=== PATIENT | female | born 1950 | race Caucasian/White ===

== ENCOUNTER 2018-12-18 14:16 | Emergency (ER) | payer OTHER ==
[~2018-12-18] VITALS: Ht 167.6 cm; Wt 72.6 kg
[2018-12-18 14:59] LABS: BASOPHILS ABSOLUTE AUTO 0.05 K/mm3 (0.00-0.23); BASOPHILS PERCENT AUTO 1 % (0-2); EOSINOPHILS ABSOLUTE AUTO 0.34 K/mm3 (0.00-0.68); EOSINOPHILS PERCENT AUTO 3 % (0-6); Hematocrit 35.8 % (33.0-51.0); Hemoglobin 11.7 g/dL (11.5-16.0); IMMATURE GRAN ABSOLUTE AUTO 0.03 K/mm3 (0.00-0.10); IMMATURE GRAN PERCENT AUTO 0 % (0-1); LYMPHOCYTES PERCENT AUTO 45 % (21-46); MONOCYTES PERCENT AUTO 9 % (4-13); Mean Corpuscular HGB 30.4 pg (26.0-34.0); Mean Corpuscular HGB Conc 32.7 g/dL (31.5-36.5); Mean Corpuscular Volume 93 fL (80-100); Mean Platelet Volume 10.3 fL (9.1-12.4); NEUTROPHILS ABSOLUTE AUTO 4.17 K/mm3 (1.96-9.15); NEUTROPHILS PERCENT AUTO 42 % (41-73); Platelet Count 379 K/mm3 (150-400); RDW Coefficient Variation 14.7 % (11.7-14.2); RDW Standard Deviation 50.4 fL (35.1-46.3); Red Blood Cell Count 3.85 M/mm3 (3.80-5.20); White Blood Cell Count 9.89 K/mm3 (4.00-11.30)
[2018-12-18 15:12] LABS: Albumin, Blood 3.4 g/dL (3.4-5.0); Albumin/Globulin Ratio 0.9 (0.8-1.8); Bilirubin, Total 0.2 mg/dL (0.1-1.0); Bun/Creatinine Ratio 18.4 (12.0-20.0); Calcium, Blood 9.3 mg/dL (8.5-10.1); Creatinine, Blood 1.36 mg/dL (0.40-1.00); Globulin, Blood 3.9 g/dL (2.2-4.0); Potassium, Blood 4.1 mmol/L (3.5-5.5); Total Protein, Blood 7.3 g/dL (6.4-8.2)
[2018-12-18] MEDS ORDERED: MICROZIDE12.5 M1 PO (15:40)
[2018-12-18] MEDS ORDERED: ENAL5 PO (15:41)
[2018-12-18] MEDS ORDERED: VITB2 (15:41)
[2018-12-18] MEDS ORDERED: ATOR40TA (15:42)
[2018-12-18] MEDS ORDERED: METF500C PO (15:42)
[2018-12-18] MEDS ORDERED: Oxycodone HCl5 M1 (15:43)
[2018-12-18] MEDS ORDERED: Inderal40 MG (15:43)
[2018-12-18] MEDS ORDERED: GABA100 PO (15:44)
[2018-12-18] MEDS ORDERED: BUPR75 PO (15:44)
[2018-12-18] MEDS ORDERED: LEVSOD100 PO (15:44)
[2018-12-18] MEDS ORDERED: CYCL10 PO (15:45)
[2018-12-18 16:59] LABS: Source, Urine Voided
[2018-12-18 17:04] LABS: Bilirubin, Urine Neg (Neg); Blood, Urine Neg (Neg); Glucose Qualitative, Urine Neg (Neg); Ketones, Urine Neg (Neg); Leukocyte Esterase, Urine 1+ (Neg); Nitrite, Urine Pos (Neg); Protein, Urine Neg (Neg); Urobilinogen, Urine NORM (Normal)
[2018-12-18 17:09] LABS: Appearance, Urine Clear (Clear); Color, Urine Yellow (P-Yellow)
[2018-12-18 17:10] LABS: Bacteria Many /hpf; Red Blood Cells, Urine 0-2 /hpf (0-2); Squamous Epithelial Cells Few /hpf (Few)
== END 2018-12-18 18:17 | disposition home or self-care (01) ==
LOC: ER 14:16
PROVIDERS: Emergency Medicine
DX: S30.0XXA Contusion of lower back and pelvis, initial encounter (principal); I95.9 Hypotension, unspecified; Z72.0 Tobacco use; Z88.8 Allergy status to other drugs, medicaments and biological substances; Z88.0 Allergy status to penicillin; W18.39XA Other fall on same level, initial encounter
CPT/HCPCS: 71046; 72220; 73502; 80053; 81001; 84484; 85025; 87077; 87086; 87186; 93005; 93010; 96360; 96361; 99284-25; J7120

== ENCOUNTER 2022-06-16 07:36 | Day surgery (SDC) | payer OTHER ==
[~2022-06-16] VITALS: Ht 167.6 cm; Wt 88.6 kg
[~2022-06-16 07:36] MED LIST: ATOR40TA; BUPR75 PO; CYCL10 PO; ENAL5 PO; GABA100 PO; Inderal40 MG; LEVSOD100 PO; METF500C PO; MICROZIDE12.5 M1 PO; Oxycodone HCl5 M1; VITB2
[2022-06-16] MEDS ORDERED: HYDCHL25 (08:02)
[2022-06-16] MEDS ORDERED: CENTRUM SILVER1 EAC2 (08:03)
[2022-06-16] MEDS ORDERED: Vitamin C100 M1 (08:04)
[2022-06-16] MEDS ORDERED: CALCIUM 500 MG1 EAC2 (08:04)
[2022-06-16] MEDS ORDERED: MAGCHL64ER (08:04)
[2022-06-16] MEDS ORDERED: ZINC15 (08:04)
[2022-06-16] MEDS ORDERED: FOLI1 (08:04)
[2022-06-16] MEDS ORDERED: ALOGLIPTIN12.5 M1 (08:05)
[2022-06-16] MEDS ORDERED: SERT25 (08:06)
[2022-06-16] MEDS ORDERED: INSULANI (08:28)
[2022-06-16] MEDS ORDERED: NOVOLOG FL100 UNIT/3 (08:28)
--- NOTE | 2022-06-16 10:49 | NUR ---
06/16/22 1049 LAYA SANTORO PT REPORTING LOW ABDOMINAL PAIN. HOT PACK AND WARM BLANKET APPLIED. PT REPORTS MILD IMPROVEMENT. DR. JARRETT AWARE. IS ANTICIPATED THIS IS DUE TO ADHESIONS FROM PRIOR PROCEDURES AND DIFFICULTY DURING PROCEDURE TO NAVIGATE COLON. PT INSTRUCTED TO USE OTC PAIN RELIEVER AND WARM PACK ONCE HOME. CALL IF NOT IMPROVED IN 24-48 HOURS
== END 2022-06-16 10:51 | disposition home or self-care (01) ==
LOC: ORSCSDS 07:36
PROVIDERS: Internal Medicine Gastroenterology
PROC: 0DBL8ZX Excision of Transverse Colon, Via Natural or Artificial Opening Endoscopic, Diagnostic (ICD-10-PCS; principal; 2022-06-16 09:00)
PROC: 0D757ZZ Dilation of Esophagus, Via Natural or Artificial Opening (ICD-10-PCS; principal; 2022-06-16 09:00)
PROC: 0DBP8ZX Excision of Rectum, Via Natural or Artificial Opening Endoscopic, Diagnostic (ICD-10-PCS; principal; 2022-06-16 09:00)
PROC: 0DBN8ZX Excision of Sigmoid Colon, Via Natural or Artificial Opening Endoscopic, Diagnostic (ICD-10-PCS; principal; 2022-06-16 09:00)
DX: K92.1 Melena (principal); R13.10 Dysphagia, unspecified; Z86.010 Personal history of colon polyps; D12.3 Benign neoplasm of transverse colon; K63.5 Polyp of colon; K62.1 Rectal polyp; K44.9 Diaphragmatic hernia without obstruction or gangrene; K57.30 Diverticulosis of large intestine without perforation or abscess without bleeding; I10 Essential (primary) hypertension; E78.5 Hyperlipidemia, unspecified; E03.9 Hypothyroidism, unspecified; E11.9 Type 2 diabetes mellitus without complications; Z87.891 Personal history of nicotine dependence; Z85.41 Personal history of malignant neoplasm of cervix uteri; Z85.42 Personal history of malignant neoplasm of other parts of uterus; Z79.899 Other long term (current) drug therapy; Z79.84 Long term (current) use of oral hypoglycemic drugs
CPT/HCPCS: 82947; 88305; J2704; J7120

== ENCOUNTER 2022-10-01 14:36 | Emergency (ER) | payer OTHER ==
[~2022-10-01] VITALS: Ht 167.6 cm; Wt 83.9 kg
[~2022-10-01 14:36] MED LIST changes: +ALOGLIPTIN12.5 M1; +CALCIUM 500 MG1 EAC2; +CENTRUM SILVER1 EAC2; +FOLI1; +HYDCHL25; +INSULANI; +MAGCHL64ER; +NOVOLOG FL100 UNIT/3; +SERT25; +Vitamin C100 M1; +ZINC15
[2022-10-01 15:17] LABS: BASOPHILS ABSOLUTE AUTO 0.04 K/mm3 (0.00-0.23); BASOPHILS PERCENT AUTO 0 % (0-2); EOSINOPHILS ABSOLUTE AUTO 0.11 K/mm3 (0.00-0.68); EOSINOPHILS PERCENT AUTO 1 % (0-6); Hematocrit 38.8 % (33.0-51.0); Hemoglobin 12.8 g/dL (11.5-16.0); IMMATURE GRAN ABSOLUTE AUTO 0.04 K/mm3 (0.00-0.10); IMMATURE GRAN PERCENT AUTO 0 % (0-1); LYMPHOCYTES ABSOLUTE AUTO 5.02 K/mm3 (0.84-5.20); LYMPHOCYTES PERCENT AUTO 34 % (21-46); MONOCYTES ABSOLUTE AUTO 1.42 K/mm3 (0.16-1.47); MONOCYTES PERCENT AUTO 10 % (4-13); Mean Corpuscular HGB 28.1 pg (26.0-34.0); Mean Corpuscular Volume 85 fL (80-100); Mean Platelet Volume 10.4 fL (9.1-12.4); NEUTROPHILS ABSOLUTE AUTO 8.16 K/mm3 (1.96-9.15); NEUTROPHILS PERCENT AUTO 55 % (41-73); Platelet Count 376 K/mm3 (150-400); RDW Coefficient Variation 18.5 % (11.7-14.2); RDW Standard Deviation 56.7 fL (35.1-46.3); Red Blood Cell Count 4.56 M/mm3 (3.80-5.20); White Blood Cell Count 14.79 K/mm3 (4.00-11.30)
[2022-10-01 15:57] LABS: Albumin, Blood 3.6 g/dL (3.4-5.0); Albumin/Globulin Ratio 0.9 (0.8-1.8); Bilirubin, Total 0.2 mg/dL (0.1-1.0); Calcium, Blood 8.9 mg/dL (8.5-10.1); Creatinine, Blood 1.37 mg/dL (0.40-1.00); Potassium, Blood 3.4 mmol/L (3.5-5.5); Total Protein, Blood 7.6 g/dL (6.4-8.2)
[2022-10-01] MEDS ORDERED: METR500 PO (19:21)
[2022-10-01] MEDS ORDERED: CIPR500 PO (19:21)
[2022-10-01] MEDS ORDERED: ONDA4ODT MM (19:21)
[2022-10-01 19:30] VITALS: BP 101/71
== END 2022-10-01 19:38 | disposition home or self-care (01) ==
LOC: ER 14:36
PROVIDERS: Physician Assistant
DX: K52.9 Noninfective gastroenteritis and colitis, unspecified (principal); E86.0 Dehydration; Z88.0 Allergy status to penicillin; Z79.890 Hormone replacement therapy; Z79.4 Long term (current) use of insulin; Z79.2 Long term (current) use of antibiotics; Z79.899 Other long term (current) drug therapy; E11.9 Type 2 diabetes mellitus without complications; I10 Essential (primary) hypertension; E03.9 Hypothyroidism, unspecified
CPT/HCPCS: 71046; 74177; 80053; 82947; 83690; 84484; 85025; 93005; 93010; 96374-59; 96375; 96376; 99284-25; J2405; J3010; Q9967

== ENCOUNTER 2023-03-09 07:35 | Day surgery (SDC) | payer OTHER ==
[~2023-03-09] VITALS: Ht 167.6 cm; Wt 76.7 kg
[~2023-03-09 07:35] MED LIST changes: +CIPR500 PO; +METR500 PO; +ONDA4ODT MM
[2023-03-09] MEDS ORDERED: DICLOFENAC SOD100 GM TP (08:32)
[2023-03-09] MEDS ORDERED: Norco 5-325 Ta1 EACH PO (08:33)
[2023-03-09] MEDS ORDERED: OMEP20ER PO (08:34)
[2023-03-09] MEDS ORDERED: LIDO700A20 TOP (08:34)
[2023-03-09] MEDS ORDERED: Prinivil10 MG PO (08:34)
[2023-03-09] MEDS ORDERED: SUMA25 PO (08:36)
[2023-03-09] MEDS ORDERED: ALOGLIPTIN12.5 M1 PO (08:36)
[2023-03-09] MEDS ORDERED: TRAZ50 PO (08:36)
[2023-03-09] MEDS ORDERED: ARTHRITIS AND42.5 GM TP (08:37)
[2023-03-09] MEDS ORDERED: DIPATR PO (08:38)
[2023-03-09] MEDS ORDERED: MURINE EAR OT (08:38)
[2023-03-09] MEDS ORDERED: JARDIANCE25 MG PO (08:38)
[2023-03-09] MEDS ORDERED: ROPI.25 PO (08:39)
[2023-03-09] MEDS ORDERED: GLIP5 PO (08:39)
--- NOTE | 2023-03-09 08:52 | NUR ---
03/09/23 0852 Jody Malave PT COMFORTABLE IN BED. CALL LIGHT WITHIN REACH. BED IN LOWEST POSITION.
--- NOTE | 2023-03-09 10:06 | NUR ---
03/09/23 1006 LAYA SANTORO 20ML OF ROPIVACAINE 0.5% MIXED AND VERIFIED W/ 0.1 ML OF EPI (1MG/ML) TO MAKE ROPIVACAINE 0.5% W/EPI 1:200,000 [facility] BY DR. RAMÍREZ
--- NOTE | 2023-03-09 12:08 | NUR ---
03/09/23 1208 Nieves Yoon PT CONTINUES TO C/O 9/10 PAIN IN OPERATIVE HAND. PT VSS STABLE, TALKING WITH FAMILY AND DRINKING COFFEE. WILL CONTINUE TO MONITOR AND MEDICATE PER ORDERS
[2023-03-09 12:21] VITALS: BP 111/85
== END 2023-03-09 11:55 | disposition home or self-care (01) ==
LOC: ORSCSDS 07:35
PROVIDERS: Orthopaedic Surgery
PROC: 0LN50ZZ Release Right Lower Arm and Wrist Tendon, Open Approach (ICD-10-PCS; principal; 2023-03-09 09:15)
PROC: 0RQS0ZZ Repair Right Carpometacarpal Joint, Open Approach (ICD-10-PCS; principal; 2023-03-09 09:15)
DX: M65.4 Radial styloid tenosynovitis [de Quervain] (principal); M18.11 Unilateral primary osteoarthritis of first carpometacarpal joint, right hand; I10 Essential (primary) hypertension; E11.9 Type 2 diabetes mellitus without complications; Z87.891 Personal history of nicotine dependence; Z79.899 Other long term (current) drug therapy; Z85.41 Personal history of malignant neoplasm of cervix uteri; Z85.42 Personal history of malignant neoplasm of other parts of uterus
CPT/HCPCS: 82947; C1713; J0171; J0690; J1100; J2250; J2405; J2704; J2710; J2795; J3010; J7120

== ENCOUNTER 2023-12-27 10:24 | Observation (INO) | payer OTHER ==
[~2023-12-27] VITALS: Ht 165.1 cm; Wt 66.0 kg
[~2023-12-27 10:24] MED LIST changes: +ALEVE ARTHRITI100 GM TOP; +ALOGLIPTIN12.5 M1 PO; +ARTHRITIS AND42.5 GM TP; +ASCO500 PO; -ATOR40TA; +ATOR40TA PO; +CALCIUM 250-VI1 EAC1 PO; -CALCIUM 500 MG1 EAC2; -CENTRUM SILVER1 EAC2; +CENTRUM SILVER1 EAC2 PO; +DIPATR PO; +EUTHYROX88 MCG PO; -FOLI1; +FOLI1 PO; -GABA100 PO; +GABA300 PO; +GLIP5 PO; +JARDIANCE25 MG PO; -LEVSOD100 PO; +LIDO700A20 TOP; -MAGCHL64ER; +MAGNESIUM OXID500 MG PO; +MURINE EAR OT; +Norco 5-325 Ta1 EACH PO; +PANT40 PO; +Prinivil10 MG PO; +ROPINIROLE HCL3 M2 PO; +SUMA25 PO; +TRAZ50 PO; -Vitamin C100 M1; -ZINC15; +ZINC220 PO
[2023-12-27 10:58] LABS: BASOPHILS ABSOLUTE AUTO 0.06 K/mm3 (0.00-0.23); BASOPHILS PERCENT AUTO 1 % (0-2); EOSINOPHILS ABSOLUTE AUTO 0.28 K/mm3 (0.00-0.68); EOSINOPHILS PERCENT AUTO 2 % (0-6); Hematocrit 43.9 % (33.0-51.0); Hemoglobin 14.9 g/dL (11.5-16.0); IMMATURE GRAN ABSOLUTE AUTO 0.03 K/mm3 (0.00-0.10); IMMATURE GRAN PERCENT AUTO 0 % (0-1); LYMPHOCYTES ABSOLUTE AUTO 3.47 K/mm3 (0.84-5.20); LYMPHOCYTES PERCENT AUTO 30 % (21-46); MONOCYTES ABSOLUTE AUTO 0.84 K/mm3 (0.16-1.47); MONOCYTES PERCENT AUTO 7 % (4-13); Mean Corpuscular HGB 32.3 pg (26.0-34.0); Mean Corpuscular HGB Conc 33.9 g/dL (31.5-36.5); Mean Corpuscular Volume 95 fL (80-100); NEUTROPHILS ABSOLUTE AUTO 6.86 K/mm3 (1.96-9.15); NEUTROPHILS PERCENT AUTO 59 % (41-73); Platelet Count 392 K/mm3 (150-400); RDW Standard Deviation 49.1 fL (35.1-46.3); Red Blood Cell Count 4.62 M/mm3 (3.80-5.20); White Blood Cell Count 11.54 K/mm3 (4.00-11.30)
[2023-12-27 11:06] LABS: Source, Urine Clean Catch
[2023-12-27] MEDS ORDERED: BUPR150ER PO (11:09)
[2023-12-27 11:17] LABS: Appearance, Urine Clear (Clear); Bilirubin, Urine Neg (Neg); Blood, Urine Neg (Neg); Glucose Qualitative, Urine 4+ (Neg); Ketones, Urine Neg (Neg); Leukocyte Esterase, Urine Neg (Neg); Nitrite, Urine Neg (Neg); Protein, Urine Neg (Neg); Urobilinogen, Urine NORM (Normal)
[2023-12-27 11:18] LABS: Albumin, Blood 3.3 g/dL (3.4-5.0); Albumin/Globulin Ratio 0.8 (0.8-1.8); Bilirubin, Total 0.4 mg/dL (0.1-1.0); Bun/Creatinine Ratio 16.6 (12.0-20.0); Calcium, Blood 9.7 mg/dL (8.5-10.1); Creatinine, Blood 0.96 mg/dL (0.40-1.00); Globulin, Blood 4.1 g/dL (2.2-4.0); Magnesium, Blood 2.2 mg/dL (1.6-2.4); Potassium, Blood 5.7 mmol/L (3.5-5.5); Total Protein, Blood 7.4 g/dL (6.4-8.2)
[2023-12-27 11:21] LABS: Color, Urine Pale Yellow (P-Yellow)
[2023-12-27 13:29] LABS: Base Excess Venous 4.3 mmol/L; Bicarbonate Venous 26.5 mmol/L (24.0-30.0); PCO2 Venous 49.2 mmHg (38-42); pH Blood Venous 7.38 (7.34-7.37)
[2023-12-27] MEDS ORDERED: FLU VACC TS2024-25(6MOS UP)/PF 45 MCG/0.5 ML SYRINGE IM SCH (14:25)
[2023-12-27] MEDS ORDERED: HYDROcodone 5-APAP 325 TAB PO PRN ×2 (14:30→20:05)
[2023-12-27] MEDS ORDERED: Acetaminophen 500 MG Tab PO PRN (14:30)
[2023-12-27] MEDS ORDERED: Polyethylene Glycol 3350 17 gm PO PRN (14:30)
[2023-12-27] MEDS ORDERED: Insulin Human Lispro 100 Units/ML 3ML Syringe SC SCH (16:30)
[2023-12-27 16:36] VITALS: BP 129/83
[2023-12-27] MEDS ORDERED: CALC.25 PO (19:27)
[2023-12-27 19:41] VITALS: BP 105/62
[2023-12-27] MEDS ORDERED: Docusate Sodium/Senna 1 Tab PO SCH (21:00)
[2023-12-27] MEDS ORDERED: TraZODone HCl 50 MG Tab PO SCH (23:00)
[2023-12-28 03:23] VITALS: BP 115/57
[2023-12-28 05:33] LABS: Hematocrit 42.1 % (33.0-51.0); Hemoglobin 13.9 g/dL (11.5-16.0); Mean Corpuscular Volume 97 fL (80-100); Mean Platelet Volume 9.8 fL (9.1-12.4); Platelet Count 346 K/mm3 (150-400); RDW Standard Deviation 50.2 fL (35.1-46.3); Red Blood Cell Count 4.35 M/mm3 (3.80-5.20); White Blood Cell Count 10.42 K/mm3 (4.00-11.30)
[2023-12-28 06:08] LABS: Albumin, Blood 3.1 g/dL (3.4-5.0); Anion Gap 8 mmol/L (3-11); Blood Urea Nitrogen 21 mg/dL (8-24); Bun/Creatinine Ratio 16.3 (12.0-20.0); CO2, Blood 28 mmol/L (21-32); Calcium, Blood 9.6 mg/dL (8.5-10.1); Chloride, Blood 109 mmol/L (98-108); Creatinine, Blood 1.29 mg/dL (0.40-1.00); Glomerular Filtration Rate 44 (60-); Glucose, Blood 120 mg/dL (70-99); Magnesium, Blood 2.2 mg/dL (1.6-2.4); Phosphorus, Blood 3.2 mg/dL (2.5-4.9); Potassium, Blood 4.3 mmol/L (3.5-5.5); Sodium, Blood 141 mmol/L (136-145); Thyroxine (T4) 8.5 ug/dL (4.8-13.9)
--- NOTE | 2023-12-28 06:31 | NUR ---
SHIFT SUMMARY PT A&OX4 AND ANSWERS QUESTIONS APPROPRIATELY. PT RECEIVED SCHEDULED AND PRN MEDICATIONS WITH NO ADVERSE EFFECTS. PT VERBALIZES BEING PAINFUL DUE TO RECENT INJURIES FROM FALLS. MEDICATED PER EMAR. VSS, NO COMPLAINTS OF CP/PRESSURE OR SOB. PT WAS CONTINENT TO THE BSC. PT ON CONTINUOUS TELEMETRY RUNNING NSR. PT SPENT MOST OF SHIFT IN BED WITH EYES CLOSED AND RESPIRATIONS EVEN AND UNLABORED. NO ACUTE EVENTS AT THIS TIME. PT REPOSITIONED Q2HRS. PROPER FALL PRECAUTIONS IN PLACE AND CALL LIGHT IN REACH.
[2023-12-28 07:13] VITALS: BP 115/64
[2023-12-28 07:15] VITALS: BP 128/80
[2023-12-28 07:17] VITALS: BP 104/49
[2023-12-28] MEDS ORDERED: Aspirin 81 MG Chew PO SCH (09:00)
[2023-12-28] MEDS ORDERED: NS 500 ML IV SCH (09:15)
--- NOTE | 2023-12-28 10:28 | NUR ---
CALL FROM [facility] STATING PATIENT HAD BEEN BRADYING DOWN OVER THE COARSE OF THE LAST HOUR AND A HALF AND WAS NOW IN THE 40s. PATIENT WITH C/O PARESTHESIA LEFT SIDE OF FACE WHICH HAS BEEN PRODROMAL TO SYNCOPAL EPISODES IN THE PAST. NO SYNCOPE EPISODES AT THIS TIME. WILL REPORT IF SHE FEELS THIS WAY.
--- NOTE | 2023-12-28 10:42 | NUR ---
VOICEMAIL FOR DR DIAZ NOTIFYING HIM OF LEFT FACIAL PARESTHESIA.
[2023-12-28] MEDS ORDERED: BUPR150ER PO (15:38)
--- NOTE | 2023-12-28 15:51 | NUR ---
[facility].
[2023-12-28 16:11] VITALS: BP 91/51
[2023-12-28 16:13] VITALS: BP 100/62
--- NOTE | 2023-12-28 19:13 | NUR ---
DISCHARGE SUMMARY: A&Ox4. PLEASANT AND COOPERATIVE WITH CARE. CALLS APPROPRIATELY AND IS ABLE TO ADVOCATE NEEDS EFFECTIVELY. MEDS WHOLE WITH FLUIDS. C/O LEFT-SIDED FACIAL PARESTHESIA AND DIZZINESS. DECLINES SNF. WANTS TO GO HOME. MED REC TO [facility]. NO INSULIN COVERAGE NEEDED FOR BLOOD SUGARS TODAY. TOLERATING FOOD AND FLUIDS. TELE SINUS @ 92 WITH INTERMITTENT A-FIB. HUNG DOWN TO 40s DURING EPISODE OF FACIAL PARESTHESIA. C/O NECK AND RIB PAIN R/T FRACTURES; PRN HYDROCODONE GIVEN ROUTINELY PER HER REQUEST. ORTHOSTATIC BPs CONSISTENT. DC'D HOME. LEFT WITH FRIEND/NEIGHBOR, BUD, WHO BROUGHT HER IN. IV REMOVED BY THIS RN. LEFT FLOOR WITH DISCHARGE PACKET AND ALL BELONGINGS.
== END 2023-12-28 16:44 | disposition home health service (06) ==
LOC: ER 10:24 → MEDS 10:25
PROVIDERS: Student in an Organized Health Care Education/Training Program; ADMIT Internal Medicine
DX: R55 Syncope and collapse (principal); R42 Dizziness and giddiness; R20.2 Paresthesia of skin; S12.200A Unspecified displaced fracture of third cervical vertebra, initial encounter for closed fracture; X58.XXXA Exposure to other specified factors, initial encounter; I12.9 Hypertensive chronic kidney disease with stage 1 through stage 4 chronic kidney disease, or unspecified chronic kidney disease; E11.22 Type 2 diabetes mellitus with diabetic chronic kidney disease; K21.9 Gastro-esophageal reflux disease without esophagitis; J43.9 Emphysema, unspecified; E03.9 Hypothyroidism, unspecified; Z66 Do not resuscitate; Z88.0 Allergy status to penicillin; Z88.6 Allergy status to analgesic agent; Z79.4 Long term (current) use of insulin; Z79.890 Hormone replacement therapy; Z79.899 Other long term (current) drug therapy; Z90.49 Acquired absence of other specified parts of digestive tract
CPT/HCPCS: 36415; 70450; 71260; 72125; 80053; 80069; 81003; 82803; 82947; 83735; 84436; 84443; 84484; 85025; 85027; 93005; 93010; 93246; 93880; 97110; 97161; 97530; 99285-25; A9270; G0378; J7040; Q9967